=== PATIENT | female | born 1940 | race Caucasian/White ===

== ENCOUNTER 2025-05-14 14:45 | Emergency (ER) | payer MEDICARE, OTHER ==
[~2025-05-14] VITALS: Ht 160 cm; Wt 61.2 kg
[2025-05-14] MEDS ORDERED: GABA100C PO (15:00)
[2025-05-14] MEDS ORDERED: FAMO10TA41 PO (15:00)
[2025-05-14] MEDS ORDERED: diphenhydrAMINE 50 MG/1 ML VIAL ONE (15:32)
[2025-05-14] MEDS ORDERED: METOCLOPRAMIDE HCL 10 MG/2 ML VIAL ONE (15:33)
[2025-05-14] MEDS: diphenhydrAMINE 50 MG/1 ML VIAL IV ONE (15:33)
[2025-05-14 15:35] LABS: PLATELET COUNT (AUTO) 201 K/uL (179-408); RED BLOOD CELL COUNT(AUTO) 2.64 MIL/uL (3.63-4.92); RED CELL DISTRIBUTION WIDTH 14.9 % (12.3-17.7); WHITE BLOOD COUNT (AUTO) 10.0 K/uL (3.8-11.8)
[2025-05-14] MEDS: METOCLOPRAMIDE HCL 10 MG/2 ML VIAL IV ONE (15:35)
[2025-05-14 15:42] LABS: CREATININE 0.7 mg/dL (0.6-1.3); SODIUM SERUM 136 mmol/L (136-145); UREA NITROGEN, BLOOD 43 mg/dL (7-18)
[2025-05-14 15:48] LABS: ASPARTATE AMINOTRANSFERASE 16 U/L (15-37); TOTAL PROTEIN, SERUM 5.1 g/dL (6.4-8.2)
[2025-05-14] MEDS: IV NORMAL SALINE 1000 ML BAG IV ONE (17:04)
[2025-05-14 18:15] VITALS: BP 128/74
[2025-05-14] MEDS ORDERED: IOHEXOL 300MG/ML 100 ML INFUS..BTL ONE (18:22)
[2025-05-14] MEDS ORDERED: SWABABLE VALVE TRANSFER SET EA MC ONE (18:22)
[2025-05-14] MEDS ORDERED: IV NORMAL SALINE 250 ML IV ONE (18:22)
[2025-05-14 23:09] VITALS: BP 128/74; O2SAT 97
== END 2025-05-14 23:09 | disposition left against medical advice (07) ==
LOC: ER 14:45
DX: K56.699 Other intestinal obstruction unspecified as to partial versus complete obstruction (principal); C18.9 Malignant neoplasm of colon, unspecified; K90.822 Short bowel syndrome without colon in continuity; Z79.899 Other long term (current) drug therapy; Z85.038 Personal history of other malignant neoplasm of large intestine; Z90.49 Acquired absence of other specified parts of digestive tract; Z93.3 Colostomy status; Z20.822 Contact with and (suspected) exposure to COVID-19
CPT/HCPCS: 99285; 74177; 96374; 96361; 71045; 96375; 87426; 80076; 80048; 83690; 85025; 85730; 87040 ×2; 84484; 36415; 74021; 93005; 83605; J1200; J2765; Q9967; J7040; A4606; A4663